=== PATIENT | female | born 1975 ===

== ENCOUNTER 2019-11-06 10:53 | Day surgery (SDC) | payer OTHER ==
[~2019-11-06] VITALS: Ht 165.1 cm; Wt 74.7 kg
--- NOTE | 2019-11-06 11:55 | NUR ---
Patient to the PACU via cart at this time for block with AA.
[2019-11-06 11:56] VITALS: BP 147/83; PULSE 77; TEMP 98.1
[2019-11-06] MEDS ORDERED: PERCOCET 325 MG1 TA2 PO ×2 (11:56→14:18)
[2019-11-06] MEDS ORDERED: MOTRIN 800800 MG/TAB PO (14:18)
[2019-11-06 15:10] VITALS: BP 114/60; PULSE 90; TEMP 98.4
--- NOTE | 2019-11-06 15:10 | NUR ---
Pt to [facility] via cart from PACU. Pt drowsy, but awake. Denies pain or nausea. Family in room. Aquacell dressing to Right shoulder is clean, dry and intact. Sling to right arm on. +2 right radial pulses. Right arm/hand is warm, dry, and pink. Cap refill less than 3 seconds. Water and crackers given per pt request. Will continue to monitor. Ice pack to right shoulder on.
[2019-11-06 15:25] VITALS: BP 126/96; PULSE 89
--- NOTE | 2019-11-06 15:25 | NUR ---
Pt continues to rest. Tolerating food and fluids without difficulties. Call light within reach.
[2019-11-06 15:40] VITALS: BP 121/69; PULSE 84
--- NOTE | 2019-11-06 15:40 | NUR ---
Pt up to restroom with stand by assist. Pt voids large amount without difficulties. Pt back to room. Pt requesting discharge.
--- NOTE | 2019-11-06 16:30 | NUR ---
Discharge instructions reviewed. Pt voices understanding. IV site discontinued with all parts intact. Will assist pt with dressing and handling of right arm/sling. Call light within reach.
--- NOTE | 2019-11-06 16:45 | NUR ---
Pt escorted to private car via wheel chair. Pt accompanied home by her family.
== END 2019-11-06 16:45 | disposition home or self-care (01) ==
LOC: SDCO 10:53
DX: S42.221A 2-part displaced fracture of surgical neck of right humerus, initial encounter for closed fracture (principal); W01.0XXA Fall on same level from slipping, tripping and stumbling without subsequent striking against object, initial encounter; F17.210 Nicotine dependence, cigarettes, uncomplicated; Z80.9 Family history of malignant neoplasm, unspecified; Z80.8 Family history of malignant neoplasm of other organs or systems; Z80.6 Family history of leukemia; Z80.41 Family history of malignant neoplasm of ovary; Z82.49 Family history of ischemic heart disease and other diseases of the circulatory system; Z83.2 Family history of diseases of the blood and blood-forming organs and certain disorders involving the immune mechanism; Z88.5 Allergy status to narcotic agent; Z91.040 Latex allergy status
CPT/HCPCS: C1713; C1776; J0330; J0690; J1100; J1885; J2250; J2405; J2704; J2795; J3010; J7120